=== PATIENT | female | born 1950 | race Two or more races ===

== ENCOUNTER → 2017-04-15 | Outpatient (CLI) | payer OTHER | END | disposition home or self-care (01) | LOC: HKI 10:25 | DX: M17.0 Bilateral primary osteoarthritis of knee (principal) | CPT/HCPCS: 73562; 73562-50 ==

== ENCOUNTER → 2017-06-24 | Outpatient (CLI) | payer OTHER | END | disposition home or self-care (01) | LOC: HKI 14:20 | DX: M17.0 Bilateral primary osteoarthritis of knee (principal); I10 Essential (primary) hypertension | CPT/HCPCS: Z7500 ==

== ENCOUNTER → 2017-10-19 | Outpatient (CLI) | payer OTHER | END | disposition home or self-care (01) | LOC: HKI 14:40 | DX: Z01.818 Encounter for other preprocedural examination (principal) | CPT/HCPCS: Z7500 ==

== ENCOUNTER 2017-10-20 07:31 | Inpatient (IN) | payer OTHER ==
[~2017-10-20 07:31] MED LIST: PROPOFOL 1000 MG INJ; PROPOFOL 200 MG INJ
[2017-10-20] MEDS ORDERED: NEOSTIGMINE 3 MG/3 ML SYRINGE (08:32)
[2017-10-20] MEDS ORDERED: ONDANSETRON 4 MG INJ (08:32)
[2017-10-20] MEDS ORDERED: CEFAZOLIN 1 GM INJ (08:32)
[2017-10-20] MEDS ORDERED: PROPOFOL 20 ML (08:32)
[2017-10-20] MEDS ORDERED: FENTAnyl 50 MCG/ML VIAL (08:32)
[2017-10-20] MEDS ORDERED: GLYCOPYRROLATE 0.4 MG INJ (08:32)
[2017-10-20] MEDS ORDERED: ROCURONIUM 50 MG INJ (08:32)
[2017-10-20] MEDS ORDERED: DEXAMETHASONE 4 MG/ML 1 ML INJ (08:32)
[2017-10-20] MEDS ORDERED: MIDAZOLAM 1 MG/ML 2 ML INJ (08:32)
[2017-10-20] MEDS ORDERED: BUPIVACAINE 0.75%/DEXT (SPINAL) 2 ML INJ (08:33)
[2017-10-20] MEDS ORDERED: ROPIVACAINE 0.5 % 30 ML VIAL (08:33)
[2017-10-20] MEDS ORDERED: morphine SULFATE/PF (10 MG/10 ML) INJ (08:33)
[2017-10-20] MEDS: LACTATED RINGER'S 1,000 ML IV* (08:42)
[2017-10-20] MEDS: LANSOPRAZOLE 30 MG CAP PO (08:52)
[2017-10-20] MEDS: ACETAMINOPHEN 1000MG/100ML IV 100 ML IVPB (08:52)
[2017-10-20] MEDS: CELECOXIB 200 MG CAP PO (08:52)
[2017-10-20] MEDS: DEXAMETHASONE 4 MG/ML 1 ML INJ IV (08:53)
[2017-10-20] MEDS: oxyCODONE (CR) 10 MG TAB [oxyCONTIN] PO (08:53)
[2017-10-20] MEDS: ONDANSETRON 4 MG INJ IV ×4 (08:53→22:30)
[2017-10-20] MEDS ORDERED: SENNA/DOCUSATE NA (8.6MG/50MG) TAB PO (10:30)
[2017-10-20] MEDS ORDERED: BISACODYL 10 MG SUPP PR (10:30)
[2017-10-20] MEDS ORDERED: MAGNESIUM HYDROXIDE 30ML CUP PO (10:30)
[2017-10-20] MEDS ORDERED: oxyCODONE 5 MG TAB PO ×3 (10:30)
[2017-10-20] MEDS ORDERED: KETOROLAC 15 MG INJ IV (10:30)
[2017-10-20] MEDS ORDERED: NALOXONE (0.4 MG/ML) INJ IV (10:30)
[2017-10-20] MEDS ORDERED: DIPHENHYDRAMINE 50 MG INJ IV (10:30)
[2017-10-20] MEDS ORDERED: NA PHOSPHATE/BIPHOS 133 ML ENEMA PR (10:30)
[2017-10-20] MEDS ORDERED: BETHANECHOL 25 MG TAB PO (10:30)
[2017-10-20] MEDS: CEFAZOLIN 2 GM/50 ML (PMX) 50 ML IVPB (10:55)
[2017-10-20] MEDS: TRANEXAMIC ACID 1,000 MG in NS 100 ML PRE-OP X1 IVPB (11:11)
[2017-10-20] MEDS: BACITRACIN 50000 UNITS INJ (11:28)
[2017-10-20] MEDS: POLYMYXIN B 500000 UNIT INJ (11:29)
[2017-10-20] MEDS: KNEE PAIN COCKTAIL (CEFUROXIME) INJ ×2 (12:00→12:14)
[2017-10-20] MEDS: TRANEXAMIC ACID 1,000 MG in NS 100 ML INTRA-OP X1 IVPB (12:15)
[2017-10-20] MEDS: CEFAZOLIN 1 GM/50 ML (PMX) 50 ML IVPB ×2 (13:40→20:44)
[2017-10-20] MEDS: ASPIRIN (EC) 325 MG TAB PO ×2 (13:41→20:44)
[2017-10-20] MEDS: DOCUSATE SODIUM 100 MG CAP PO (13:41)
[2017-10-20] MEDS: SOD CHLORIDE 0.9% 1,000 ML IV ×2 (13:42→23:28)
[2017-10-21] MEDS: ONDANSETRON 4 MG INJ IV (04:08)
[2017-10-21] MEDS: CEFAZOLIN 1 GM/50 ML (PMX) 50 ML IVPB (04:09)
[2017-10-21 04:52] LABS: ADD MAN DIFF? NO
[2017-10-21 05:01] LABS: BASOPHILS % 0.1 % (0.0-2.0); HEMATOCRIT 30.1 % (37.0-47.0); HEMOGLOBIN 9.8 g/dl (12.0-16.0); LYMPHOCYTES # 1.2 10^3/ul (0.8-2.9); LYMPHOCYTES % 8.9 % (15.0-51.0); MEAN CORPUSCULAR HEMOGLOBIN 29.8 pg (29.0-33.0); MEAN CORPUSCULAR HGB CONC 32.6 g/dl (32.0-37.0); MEAN CORPUSCULAR VOLUME 91.5 fl (82.0-101.0); MEAN PLATELET VOLUME 9.6 fl (7.4-10.4); MONOCYTE # 0.7 10^3/ul (0.3-0.9); MONOCYTES % 5.2 % (0.0-11.0); NEUTROPHIL # 11.5 10^3/ul (1.6-7.5); NEUTROPHILS % 85.2 % (39.0-77.0); PLATELET COUNT 207 10^3/UL (140-415); RED BLOOD COUNT 3.29 10^6/ul (4.20-5.40); RED CELL DISTRIBUTION WIDTH 13.5 % (11.5-14.5)
[2017-10-21 05:01] LABS: WHITE BLOOD COUNT 13.5 10^3/ul (4.8-10.8)
[2017-10-21 05:17] LABS: ANION GAP 11 (8-16); BLOOD UREA NITROGEN 17 mg/dl (7-20); CALCIUM 8.2 mg/dl (8.4-10.2); CARBON DIOXIDE 25 mmol/L (21-31); CHLORIDE 108 mmol/L (97-110); CREATININE 0.73 mg/dl (0.44-1.00); GLUCOSE 137 mg/dl (70-220); POTASSIUM 4.1 mmol/L (3.5-5.1); SODIUM 140 mmol/L (135-144)
[2017-10-21] MEDS: CELECOXIB 200 MG CAP PO (08:33)
[2017-10-21] MEDS: FERROUS FUMARATE (SR) TAB PO (08:34)
[2017-10-21] MEDS: ASPIRIN (EC) 325 MG TAB PO (08:34)
[2017-10-21] MEDS: GABAPENTIN 100 MG CAP PO ×2 (08:34→12:45)
[2017-10-21] MEDS: DOCUSATE SODIUM 100 MG CAP PO (08:35)
[2017-10-21] MEDS ORDERED: GABAPENTIN 100 MG CAP PO (09:00)
[2017-10-22] MEDS ORDERED: PANTOPRAZOLE (EC) 40 MG TAB PO (06:00)
== END 2017-10-21 13:51 | disposition home health service (06) | DRG 470 ==
LOC: REC 07:31 → MS1 14:40
PROC: 0SRD0J9 Replacement of Left Knee Joint with Synthetic Substitute, Cemented, Open Approach (ICD-10-PCS; principal; 2017-10-20 10:30)
DX: M17.12 Unilateral primary osteoarthritis, left knee (principal)
CPT/HCPCS: 73560; 80048; 85025; 86850; 86900; 86901; 87086; 88304; 88311; 97110; 97116; 97161; 97167; 97530

== ENCOUNTER → 2017-11-09 | Outpatient (CLI) | payer OTHER | END | disposition home or self-care (01) | LOC: HKI 09:37 | DX: Z09 Encounter for follow-up examination after completed treatment for conditions other than malignant neoplasm (principal); Z96.652 Presence of left artificial knee joint | CPT/HCPCS: 73562; 73562-LT ==

== ENCOUNTER → 2017-12-02 | Outpatient (CLI) | payer OTHER | END | disposition home or self-care (01) | LOC: HKI 10:06 | DX: Z09 Encounter for follow-up examination after completed treatment for conditions other than malignant neoplasm (principal); Z96.652 Presence of left artificial knee joint | CPT/HCPCS: 73560; 73560-LT ==

== ENCOUNTER → 2018-01-21 | Outpatient (CLI) | payer OTHER | END | disposition home or self-care (01) | LOC: HKI 10:16 | DX: Z47.1 Aftercare following joint replacement surgery (principal); Z96.652 Presence of left artificial knee joint | CPT/HCPCS: 73562; 73562-LT ==

== ENCOUNTER → 2018-04-21 | Outpatient (CLI) | payer OTHER | END | disposition home or self-care (01) | LOC: HKI 09:43 | DX: Z09 Encounter for follow-up examination after completed treatment for conditions other than malignant neoplasm (principal); R20.2 Paresthesia of skin; Z96.652 Presence of left artificial knee joint | CPT/HCPCS: 73562; 73562-LT ==

== ENCOUNTER 2018-10-14 05:00 | Emergency (ER) | payer OTHER ==
[2018-10-14] MEDS: morphine 4 MG/ML VIAL IM (05:39)
[2018-10-14] MEDS: DEXAMETHASONE 10 MG/ML 1 ML INJ IM (05:39)
== END 2018-10-14 05:46 | disposition home or self-care (01) ==
LOC: FTE 05:00
DX: M54.42 Lumbago with sciatica, left side (principal); I10 Essential (primary) hypertension
CPT/HCPCS: 96372; 99284-25